=== PATIENT | male | born 1940 | race Caucasian/White ===

== ENCOUNTER 2019-03-01 07:29 | Day surgery (SDC) | payer OTHER, SELFPAY ==
[2019-03-01] VITALS (7 sets, daily range): BP systolic 87–125; BP diastolic 53–73; PULSE 50–61; RESP 8–15; TEMP 36.6–36.9; O2SAT 99–100; BMI 22.8
--- NOTE | 2019-03-01 | PATH_ITS ---
[facility] Accession Number: [id number] . 01 Material submitted: . PART A: CECAL POLYP X2 PART B: ASCENDING COLON POLYPS X10 PART C: RECTAL POLYP . 02 Diagnosis: A. Cecal Polyp x2: Multiple fragments of tubular adenoma; negative for high-grade dysplasia. . B. Ascending Colon Polyps x10: Multiple fragments of tubular adenoma; negative for high-grade dysplasia. . C. Rectal Polyp: Hyperplastic polyp. MRV/03/02/2019 . 02 Electronically signed: . Alisha Ayala MD, Pathologist NPI- [id number] . 01 Gross description: . Part A: CECAL POLYP X2: Received in formalin are multiple fragment(s) of beach, soft tissue measuring 0.1 x 0.1 x 0.1 cm to 0.3 x 0.3 x 0.2 cm which is entirely submitted and submitted entirely in 1 cassette(s) Part B: ASCENDING COLON POLYPS X10: Received in formalin are multiple fragment(s) of beach, soft tissue measuring 0.1 x 0.1 x 0.1 cm to 0.3 x 0.3 x 0.2 cm which is and submitted entirely in 1 cassette(s) Part C: RECTAL POLYP: Received in formalin is 1 fragment(s) of beach, soft tissue measuring 0.5 x 0.4 x 0.4 cm which is and submitted entirely in 1 cassette(s) /[facility] /[facility] . 02 Pathologist provided ICD-10: K63.5 . 02 CPT . 735566, [id number], [id number] Performed at: [facility], [place], [place] [id number] MD Terrance Nguyen MD Phone: [phone] Performed at: 02 [facility] [place] [address] [place] [id number] MD Olivia Gutierrez MD Phone: [phone]
[2019-03-01] MEDS: SODIUM CHLORIDE 0.9% 1,000 ML 100 ML IV (08:40)
--- NOTE | 2019-03-01 09:03 | PM.HP.1 ---
History of Present Illness Chief complaint: [id number] Patient History Social History household members: spouse Family & Social History Social History: household members spouse Meds Home Medications Medication Instructions Recorded Confirmed Type atorvastatin 10 mg DAILY 03/01/19 03/01/19 History verapamil 120 mg BID 03/01/19 03/01/19 History Allergies Allergy/AdvReac Type Severity Reaction Status Date / Time meperidine [From Demerol] AdvReac Intermediate Hypotension Verified 03/01/19 08:26 Exam Vital Signs (past 8 hours): - 03/01/19 08:30 Temperature 97.8 F Pulse Rate 61 Respiratory Rate 15 Blood Pressure 125/73 Pulse Oximetry 100 Oxygen Delivery Method Room Air Narrative Exam Narrative: Awake alert and oriented x3, pupils equal round reactive to light, heart regular rate rhythm, lungs clear to auscultation, abdomen soft nontender nondistended, no lower extremity edema Assessment & Plan Assessment & Plan narrative: Colon cancer screening for colonoscopy
[2019-03-01] MEDS: MIDAZOLAM 5 MG/5 ML VIAL IV (09:20)
[2019-03-01] MEDS: fentaNYL 250 MCG/5 ML INJ IV (09:21)
--- NOTE | 2019-03-01 09:26 | SUR.OPER ---
PATIENT SUPINE PER PHYSICIAN DURING PARTS OF THE PROCEDURE.
--- NOTE | 2019-03-01 09:51 | PM.OP.ENDO ---
Operative Date/Time/Diagnoses Date of procedure: 03/01/19 Procedure & Clinicians Study performed: colonoscopy with biopsy and snare polypectomy Indications: Personal history of colon polyps. Last colonoscopy 2015 Moderate conscious sedation was administered by the endoscopy nurse and supervised by the endoscopist. The following parameters were monitored: Oxygen saturation, heart rate, blood pressure, and response to care. Sedation: 5 mg midazolam, 150 mcg fentanyl Procedure Notes Procedure in detail: Prior to the procedure, history and physical was performed, and patient medications and allergies were reviewed. Preprocedure nursing history and assessment was reviewed. Patient identification and proposed procedure were verified by the physician and nurse in the procedure room. The physical status of the patient was reassessed after the procedure. After informed consent was obtained including risks, benefits, and alternatives, the scope was passed under direct vision. Throughout the procedure, the patient's blood pressure, pulse, and oxygen saturations were monitored continuously. The colonoscope was introduced through the anus and advanced to the cecum as identified by the appendiceal orifice and ileocecal valve. The patient tolerated the procedure well. Bowel prep was deemed adequate to detect polyps greater than 5 mm. PONCHO and perianal examinations were unremarkable. Retroflexion in the rectum revealed grade 2 internal hemorrhoids A 7 mm sessile rectal polyp was removed with a cold snare and retrieved Ten sessile polyps in the ascending colon ranging in size from 3-4 mm were removed with a Jumbo biopsy forceps and retrieved Two 3 mm sessile polyps in the cecum or removed with the Jumbo biopsy forceps and retrieved The entire colon was tortuous and characterized by marked looping in the left colon Impression: Internal hemorrhoids Two 3 mm cecal polyps removed Ten 3-4 mm ascending colon polyps removed One 7 mm rectal polyp removed The colon was tortuous and there was marked looping during the exam Plan for aftercare: Recommendations: Follow-up pathology results Repeat colonoscopy at a date to be determined based on pathology results Resume previous diet Resume home medications Discharged home with escort
--- NOTE | 2019-03-01 10:09 | SUR.PHASEI ---
Lightheaded upon sitting up, HOB lowered, sips of water given and patient returned to sleep.
--- NOTE | 2019-03-01 10:12 | SUR.PHASEI ---
States that the lightheadedness It's good. Comfortable, no nausea. Preparing to transfer to [facility].
== END 2019-03-01 11:07 ==
LOC: ENDO 07:34
PROVIDERS: Visit Provider Internal Medicine
PROC: 0DJD8ZZ Inspection of Lower Intestinal Tract, Via Natural or Artificial Opening Endoscopic (ICD-10-PCS; CPT 45378; principal; 2019-03-01 09:00)
DX: Z86.010 Personal history of colon polyps (principal); K64.1 Second degree hemorrhoids; D12.0 Benign neoplasm of cecum; D12.2 Benign neoplasm of ascending colon; D12.8 Benign neoplasm of rectum
CPT/HCPCS: 45380; 45385; J2250; J3010

== ENCOUNTER → 2020-05-26 10:29 | Outpatient (CLI) | payer OTHER, SELFPAY ==
[2020-05-27 08:34] LABS: COVID19 Sendout Not Detected (Not Detect)
== END ==
PROVIDERS: Visit Provider Physician Assistant
DX: Z01.812 Encounter for preprocedural laboratory examination (principal)
CPT/HCPCS: 87635